=== PATIENT | male | born 1985 | race Hispanic/Latino ===

== ENCOUNTER 2020-09-09 12:26 | Inpatient (IN) | payer BC, OTHER ==
[~2020-09-09] VITALS: Ht 185.4 cm; Wt 99.9 kg
[2020-09-09 12:32] VITALS: BP 120/79
[2020-09-09 13:04] LABS: MEAN CORPUSCULAR HEMOGLOBIN 27.2 pg (27.0-33.0); MEAN CORPUSCULAR HGB CONC 32.8 g/dL (32.0-36.0); PLATELET COUNT (AUTO) 392 K/uL (130-400); RED BLOOD CELL COUNT(AUTO) 5.18 MIL/uL (4.50-6.20); RED CELL DISTRIBUTION WIDTH 12.2 % (11.0-15.5); WHITE BLOOD COUNT (AUTO) 5.1 K/uL (4.8-10.8)
[2020-09-09 13:14] LABS: CREATININE 3.3 mg/dL (0.5-1.5)
[2020-09-09 13:21] LABS: ALBUMIN 3.9 g/dL (3.5-5.0); BILIRUBIN,TOTAL 0.3 mg/dL (0.2-1.0); TOTAL PROTEIN, SERUM 7.9 g/dL (6.0-8.3)
[2020-09-09 14:04] LABS: EOSINOPHILS % (MANUAL) 3 % (1-6); LYMPHOCYTES % (MANUAL) 51 % (22-44); MAN.DIFF COMMENT-IMPRESSION MANUAL DIFFERENTIAL; MONOCYTES % (MANUAL) 9 % (2-9); PLATELET MORPHOLOGY COMMENT ADEQUATE; SEGMENTED NEUTROPHILS % 37 % (40-70)
[2020-09-09 14:39] LABS: APPEARANCE,URINE Clear (CLEAR); BILIRUBIN,URINE Negative (NEGATIVE); COLOR,URINE Yellow (YELLOW); GLUCOSE, URINE (UA) Negative (NEGATIVE); KETONES,URINE Negative (NEGATIVE); LEUKOCYTE ESTERASE ,URINE Negative (NEGATIVE); NITRATE,URINE Negative (NEGATIVE); OCCULT BLOOD,URINE Trace (NEGATIVE); PROTEIN,URINE 300 mg/dL (NEGATIVE); UROBILINOGEN,URINE 0.2 mg/dL (0.2-1.0)
[2020-09-09 15:24] LABS: BACTERIA,URINE Few /HPF (None Seen); MUCUS,URINE Rare LPF (None Seen); SQUAMOUS EPITHELIAL CELL,UR Few /HPF (0-2); WBC,URINE 0-1 /HPF (0-1)
[2020-09-09 17:26] VITALS: BP 137/91
[2020-09-09] MEDS ORDERED: ONDANSETRON 4MG INJ IVP ONE (18:00)
[2020-09-09] MEDS ORDERED: 0.9%NACL 1000ML 1,000 ML IV ONE (18:00)
[2020-09-09 18:10] LABS: INR 1.12 (0.85-1.15); PROTHROMBIN TIME 12.1 SEC (9.6-11.6)
[2020-09-09 18:11] LABS: PARTIAL THROMBOPLASTIN TIME 25.1 SEC (26.3-35.5)
[2020-09-09] MEDS ORDERED: CEPH500B PO (18:44)
[2020-09-09] MEDS ORDERED: IBUP-2070 PO (18:44)
[2020-09-09] MEDS ORDERED: MUPI22OI2 TP (18:44)
[2020-09-09] MEDS ORDERED: SULF1TAB42 PO (18:44)
[2020-09-09 19:40] VITALS: BP 130/97
[2020-09-09] MEDS ORDERED: FENO145T26 PO (20:03)
[2020-09-09] MEDS ORDERED: METF-446 PO (20:03)
[2020-09-09] MEDS ORDERED: NEBI5TAB8 PO (20:03)
[2020-09-09] MEDS ORDERED: HYDR12.54 PO (20:03)
[2020-09-09] MEDS: 0.9%NACL 1000ML 1,000 ML IV SCH (20:05)
[2020-09-09] MEDS: INSULIN HUMULIN R 100 UNIT/ML 3ML SQ SCH (21:00)
[2020-09-09] MEDS: HEPARIN 5,000 UNIT VIAL SQ SCH (21:30)
[2020-09-09] MEDS: FAMOTIDINE 20MG TAB PO SCH (21:30)
[2020-09-09 21:54] LABS: AMPHET/METH SCREEN,URINE NEGATIVE (NEGATIVE); BARBITURATE SCREEN, URINE NEGATIVE (NEGATIVE); BENZODIAZEPINES SCREEN,URINE NEGATIVE (NEGATIVE); CANNABINOID SCREEN,URINE NEGATIVE (NEGATIVE); COCAINE SCREEN,URINE NEGATIVE (NEGATIVE); OPIATE SCREEN,URINE NEGATIVE (NEGATIVE); PHENCYCLIDINE SCREEN,URINE NEGATIVE (NEGATIVE)
[2020-09-09 22:04] VITALS: BP 134/95
[2020-09-10] VITALS (7 sets, daily range): BP systolic 112–143; BP diastolic 79–99
[2020-09-10] MEDS: 0.9%NACL 1000ML 1,000 ML IV SCH ×3 (05:40→20:57)
[2020-09-10] MEDS: INSULIN HUMULIN R 100 UNIT/ML 3ML SQ SCH ×4 (07:30→21:03)
[2020-09-10 10:02] LABS: HEMATOCRIT 39.9 % (42-54); MEAN CORPUSCULAR HGB CONC 32.6 g/dL (32.0-36.0); MEAN CORPUSCULAR VOLUME 82.8 fL (79-99); RED BLOOD CELL COUNT(AUTO) 4.82 MIL/uL (4.50-6.20); RED CELL DISTRIBUTION WIDTH 12.2 % (11.0-15.5); WHITE BLOOD COUNT (AUTO) 4.6 K/uL (4.8-10.8)
[2020-09-10] MEDS: LOSARTAN 25 MG TABLET PO SCH (10:07)
[2020-09-10] MEDS: HEPARIN 5,000 UNIT VIAL SQ SCH ×2 (10:07→21:02)
[2020-09-10] MEDS: ATORVASTATIN 20 MG TABLET PO SCH (10:07)
[2020-09-10] MEDS: NEBIVOLOL HCL 5 MG PO SCH (10:12)
[2020-09-10 10:30] LABS: CREATININE 2.8 mg/dL (0.5-1.5); MAGNESIUM 2.4 mg/dL (1.80-2.40); PHOSPHORUS 4.1 mg/dL (2.5-4.9); POTASSIUM 4.5 mmol/L (3.5-5.1)
[2020-09-10] MEDS: FAMOTIDINE 20MG TAB PO SCH (20:53)
[2020-09-11] VITALS (7 sets, daily range): BP systolic 114–149; BP diastolic 76–97
[2020-09-11 05:12] LABS: HEMATOCRIT 34.9 % (42-54); MEAN CORPUSCULAR HEMOGLOBIN 27.3 pg (27.0-33.0); MEAN CORPUSCULAR HGB CONC 33.2 g/dL (32.0-36.0); MEAN CORPUSCULAR VOLUME 82.1 fL (79-99); RED BLOOD CELL COUNT(AUTO) 4.25 MIL/uL (4.50-6.20); RED CELL DISTRIBUTION WIDTH 12.1 % (11.0-15.5); WHITE BLOOD COUNT (AUTO) 4.7 K/uL (4.8-10.8)
[2020-09-11 05:35] LABS: CREATININE 2.4 mg/dL (0.5-1.5); MAGNESIUM 2.1 mg/dL (1.80-2.40); PHOSPHORUS 3.7 mg/dL (2.5-4.9); POTASSIUM 4.1 mmol/L (3.5-5.1); URIC ACID 7.2 mg/dL (2.6-7.2)
[2020-09-11] MEDS: 0.9%NACL 1000ML 1,000 ML IV SCH (05:57)
[2020-09-11] MEDS: INSULIN HUMULIN R 100 UNIT/ML 3ML SQ SCH ×4 (05:57→20:48)
[2020-09-11 08:08] LABS: APPEARANCE,URINE Clear (CLEAR); BILIRUBIN,URINE Negative (NEGATIVE); COLOR,URINE Yellow (YELLOW); GLUCOSE, URINE (UA) Negative (NEGATIVE); KETONES,URINE Negative (NEGATIVE); LEUKOCYTE ESTERASE ,URINE Negative (NEGATIVE); NITRATE,URINE Negative (NEGATIVE); OCCULT BLOOD,URINE Small (NEGATIVE); PROTEIN,URINE 300 mg/dL (NEGATIVE); UROBILINOGEN,URINE 0.2 mg/dL (0.2-1.0)
[2020-09-11 08:21] LABS: BACTERIA,URINE None Seen /HPF (None Seen); RBC,URINE 0-1 /HPF (0-1); SQUAMOUS EPITHELIAL CELL,UR 0-2 /HPF (0-2); WBC,URINE 0-1 /HPF (0-1)
[2020-09-11] MEDS: NEBIVOLOL HCL 5 MG PO SCH (09:00)
[2020-09-11] MEDS: HEPARIN 5,000 UNIT VIAL SQ SCH ×2 (09:11→20:46)
[2020-09-11] MEDS: LOSARTAN 25 MG TABLET PO SCH (09:15)
[2020-09-11] MEDS: ATORVASTATIN 20 MG TABLET PO SCH (09:15)
[2020-09-11 19:02] LABS: PROTEIN,URINE RANDOM 167.6 mg/dL (0-11.9)
[2020-09-11] MEDS: GABAPENTIN 100 MG CAPSULE PO SCH (20:40)
[2020-09-11] MEDS: FAMOTIDINE 20MG TAB PO SCH (20:40)
[2020-09-12] MEDS: 0.9%NACL 1000ML 1,000 ML IV SCH (01:31)
[2020-09-12 04:08] VITALS: BP 119/78
[2020-09-12 05:55] LABS: HEMATOCRIT 32.5 % (42-54); MEAN CORPUSCULAR HGB CONC 32.3 g/dL (32.0-36.0); MEAN CORPUSCULAR VOLUME 83.5 fL (79-99); RED BLOOD CELL COUNT(AUTO) 3.89 MIL/uL (4.50-6.20); RETICULOCYTE % (AUTO) 1.14 % (0.42-2.23); WHITE BLOOD COUNT (AUTO) 3.9 K/uL (4.8-10.8)
[2020-09-12 06:17] LABS: % IRON SATURATION 33.7 % (30-44)
[2020-09-12] MEDS: INSULIN HUMULIN R 100 UNIT/ML 3ML SQ SCH ×3 (06:27→16:04)
[2020-09-12 06:33] LABS: ALBUMIN 2.9 g/dL (3.5-5.0); BILIRUBIN,TOTAL 0.2 mg/dL (0.2-1.0); CREATININE 2.3 mg/dL (0.5-1.5); POTASSIUM 4.3 mmol/L (3.5-5.1); THYROID STIMULATING HORMONE 0.45 uIU/mL (0.36-3.74); TOTAL PROTEIN, SERUM 5.8 g/dL (6.0-8.3); URIC ACID 6.2 mg/dL (2.6-7.2)
[2020-09-12 08:00] VITALS: BP 119/83
[2020-09-12] MEDS: GABAPENTIN 100 MG CAPSULE PO SCH (08:57)
[2020-09-12] MEDS: LOSARTAN 25 MG TABLET PO SCH (08:57)
[2020-09-12] MEDS: ATORVASTATIN 20 MG TABLET PO SCH (08:57)
[2020-09-12] MEDS: NEBIVOLOL HCL 5 MG PO SCH (09:00)
[2020-09-12] MEDS: HEPARIN 5,000 UNIT VIAL SQ SCH (09:02)
[2020-09-12] MEDS ORDERED: ATOR20TA65 PO (09:27)
[2020-09-12] MEDS ORDERED: LOSA25TA2 PO (09:27)
[2020-09-12] MEDS ORDERED: GABA100C PO (09:27)
[2020-09-12 12:00] VITALS: BP 134/92
[2020-09-12 16:00] VITALS: BP 165/101
[2020-09-13 06:13] LABS: HEPATITIS A ANTIBODY IGM Negative (Negative); HEPATITIS B CORE IGM Negative (Negative); HEPATITIS Bs ANTIGEN SCREEN P Negative (Negative)
== END 2020-09-12 18:20 | disposition home or self-care (01) | DRG 684 ==
LOC: EDH 12:26 → OBSVTOIN 19:21 → EDHIP 19:21 → 3CH 09-10 10:55
PROVIDERS: ADMIT Hospitalist; ATTEND Hospitalist
DX: N17.9 Acute kidney failure, unspecified (principal); E78.5 Hyperlipidemia, unspecified; E11.22 Type 2 diabetes mellitus with diabetic chronic kidney disease; N18.9 Chronic kidney disease, unspecified; Z79.899 Other long term (current) drug therapy; Z20.822 Contact with and (suspected) exposure to COVID-19; I12.9 Hypertensive chronic kidney disease with stage 1 through stage 4 chronic kidney disease, or unspecified chronic kidney disease
CPT/HCPCS: 36415; 71045; 74176; 76770; 80048; 80053; 80061; 80074; 80305; 81001; 82550; 82570; 82607; 82746; 82948; 83036; 83540; 83550; 83735; 83880; 83930; 83935; 84100; 84156; 84300; 84443; 84484; 84550; 85025; 85027; 85045; 85610; 85730; 86038; 86215; 86235; 86341; 86701; 87390; 87635; 93005; G0378; J1644; J1815; J7030

== ENCOUNTER 2022-11-13 05:56 | Emergency (ER) | payer BC ==
[~2022-11-13] VITALS: Ht 185.4 cm; Wt 132.9 kg
[~2022-11-13 05:56] MED LIST: ATOR20TA65 PO; GABA100C PO; LOSA-417 PO; NEBI5TAB PO
[2022-11-13 07:21] LABS: BASOPHILS # (AUTO) 0.04 K/uL (0.00-0.20); BASOPHILS % (AUTO) 0.9 % (0.0-5.0); EOSINOPHILS # (AUTO) 0.21 K/uL (0.00-0.70); EOSINOPHILS % (AUTO) 4.6 % (0.0-8.0); HEMATOCRIT 28.2 % (42-54); IMMATURE GRANULOCYTE ABSOLUTE 0.01 K/uL (0-1); LYMPHOCYTES # (AUTO) 0.8 K/uL (1.0-4.8); LYMPHOCYTES % (AUTO) 17.5 % (21.0-51.0); MEAN CORPUSCULAR HEMOGLOBIN 28.5 pg (27.0-33.0); MEAN CORPUSCULAR HGB CONC 31.9 g/dL (32.0-36.0); MEAN CORPUSCULAR VOLUME 89.2 fL (79-99); MONOCYTES # (AUTO) 0.5 K/uL (0.1-1.0); MONOCYTES % (AUTO) 11.2 % (3.0-13.0); NEUTROPHILS % (AUTO) 65.6 % (40.0-77.0); PLATELET COUNT (AUTO) 182 K/uL (130-400); RED BLOOD CELL COUNT(AUTO) 3.16 MIL/uL (4.50-6.20); RED CELL DISTRIBUTION WIDTH 13.5 % (11.0-15.5); WHITE BLOOD COUNT (AUTO) 4.6 K/uL (4.8-10.8)
[2022-11-13 07:36] LABS: BILIRUBIN,TOTAL 0.4 mg/dL (0.2-1.0)
[2022-11-13 08:13] LABS: CREATININE 15.4 mg/dL (0.5-1.5)
[2022-11-13] MEDS ORDERED: ACETAMINOPHEN 325 MG TAB PO PRN (10:30)
[2022-11-13] MEDS ORDERED: ONDANSETRON 4MG INJ IVP PRN (10:30)
[2022-11-13 10:33] LABS: INR 1.05 (0.85-1.15); PROTHROMBIN TIME 12.1 SEC (9.6-11.6)
[2022-11-13 10:34] LABS: PARTIAL THROMBOPLASTIN TIME 28.5 SEC (26.3-35.5)
[2022-11-13] MEDS ORDERED: INSULIN HUMULIN R 100 UNIT/ML 3ML SQ SCH (11:30)
[2022-11-13 15:13] VITALS: BP 149/89; PULSE 75; RESP 18; O2SAT 98
== END 2022-11-13 15:15 | disposition short-term general hospital (02) ==
LOC: EDH 05:56 → UNDOADMOB 10:16 → EDHIP 10:16 → EDH 15:15
DX: I12.0 Hypertensive chronic kidney disease with stage 5 chronic kidney disease or end stage renal disease (principal); E11.22 Type 2 diabetes mellitus with diabetic chronic kidney disease; N18.6 End stage renal disease; N50.89 Other specified disorders of the male genital organs; E87.70 Fluid overload, unspecified; E78.00 Pure hypercholesterolemia, unspecified; Z79.899 Other long term (current) drug therapy
CPT/HCPCS: 36415; 80053; 82948; 85025; 85610; 85730; 86140